=== PATIENT | female | born 1930 | race Caucasian/White ===

== ENCOUNTER 2017-09-02 17:06 | Inpatient (IN) | payer MEDICARE ==
[~2017-09-02] VITALS: Ht 170.2 cm; Wt 62.0 kg
[2017-09-02 04:45] VITALS: TEMP 100.4
[~2017-09-02 17:06] MED LIST: CALC-197 PO; LASI20TA PO; OMEP20CA5 PO; OXYC-360 PO; POTA-243 PO; RED600TA PO
[2017-09-02 17:12] VITALS: BP 186/136; PULSE 125; RESP 22; TEMP 97.9; O2SAT 96
[2017-09-02] MEDS ORDERED: SODIUM CHLORIDE 0.9% FLUSH 10 ML FLUSH IV FLUSH PRN ×2 (18:00→20:00)
[2017-09-02] MEDS ORDERED: cefTRIAXone INJ 1,000 MG in SODIUM CHLORIDE 0.9% INJ 100 ML IV ONE (18:00)
[2017-09-02] MEDS ORDERED: FUROSEMIDE 40 MG/4 ML VIAL IV PUSH ONE (18:00)
[2017-09-02 18:13] VITALS: BP 152/58; PULSE 114; RESP 20; TEMP 101.8; O2SAT 96
--- NOTE | 2017-09-02 18:17 | PD ---
HPI Chief Complaint: Edema Time Seen by Provider: 17:57 Travel History International Travel<30 days: No Contact w/Intl Traveler<30days: No Traveled to known affect area: No History of Present Illness HPI 87-year-old female brought in by her son with multiple complaints, including increased pedal edema, lower extremity discomfort, confusion, and being more agitated and argumentative than normal. Patient lives with her son, who took her to the director employee safety and health earlier today for a foot check. Patient has history of chronic pedal edema for which he takes Lasix daily. Patient states normally the patient ambulates well with a walker, but had difficulty getting up and going to the car to get to her appointment. She is complaining about lower extremity pain and generalized weakness. Patient denies fever, chills, nausea, vomiting, chest pain, or increased shortness of breath. She denies dysuria but she has history of incontinence. Patient's son states the podiatry staff recommended we get her checked out as she was acting differently than her baseline. Patient's son states that her pedal edema seems worse than normal in the last 24 hours. Patient denies history of recent chest pain. She denies significant pain currently. She has allergies to influenza virus vaccine. PFSH Past Medical History Anxiety: Yes Depression: Yes Cancer: No Cardiovascular Problems: Yes Diminished Hearing: No Endocrine: No Genitourinary: No Hypertension: Yes Immune Disorder: No Musculoskeletal: Yes (VERY WEAK) Neurologic: No Psychiatric: Yes Reproductive: No Respiratory: No Influenza Vaccination: No ?: Not Menopausal: Yes Social History Alcohol Use: No Tobacco Use: No Substance Use: No Allergies-Medications (Allergen,Severity, Reaction): Coded Allergies: Influenza Virus Vaccines (Verified Allergy, Severe, 09/02/17) Reported Meds & Prescriptions Reported Meds & Active Scripts Active Reported Calcium 600+D3 (Calcium Carbonate-Cholecalcife) +D3 Tab 1 Mg PO DAILY K-Dur (Potassium Chloride) 10 Meq Tabcr 10 Meq PO DAILY Prilosec 20 mg (Omeprazole) 20 Mg Capcr 20 Mg PO DAILY Lasix (Furosemide) 20 Mg Tab 20 Mg PO DAILY Review of Systems Except as stated in HPI: all other systems reviewed are Neg General / Constitutional: Positive: Fever (101.8.), No: Chills Eyes: No: Diploplia, Blurred Vision, Photophobia, Drainage, Visual changes HENT: No: Headaches, Vertigo, Lightheadedness, Sore Throat, Rhinitis, Rhinorrhea, Congestion, Nosebleed, Neck Stiffness, Neck Pain, Dental Difficulties, Earache Cardiovascular: No: Chest Pain or Discomfort Respiratory: No: Cough, Shortness of Breath, Wheezing Gastrointestinal: No: Nausea, Vomiting, Diarrhea, Abdominal Pain Genitourinary: Positive: Incontinence, No: Dysuria Musculoskeletal: Positive: Weakness (Generalized), Edema (Bilateral 2+ pitting chronic), No: Myalgias, Arthralgias, Limited ROM, Pain Skin: No Rash Neurologic: No: Weakness Psychiatric: No: Depression Endocrine: No: Polydipsia Hematologic/Lymphatic: No: Easy Bruising Physical Exam Narrative GENERAL: Patient appears somewhat confused, but knows that she is here, that she lives with her son, and why she is here. SKIN: Warm and dry. Normal color. Somewhat decreased turgor. There is no signs of cellulitis in the lower extremities. There is some mild serous weeping from the left lower extremity. No signs of significant skin breakdown currently HEAD: Atraumatic. Normocephalic. EYES: Pupils equal and round. No scleral icterus. No injection or drainage. ENT: No nasal bleeding or discharge. Mucous membranes pink and moist. Pharynx is clear. Airways patent NECK: Trachea midline. No JVD. Supple nontender. CARDIOVASCULAR: Tachycardic rate and normal rhythm. RESPIRATORY: No accessory muscle use. Clear to auscultation. No obvious rales or crackles appreciated. Breath sounds equal bilaterally. GASTROINTESTINAL: Abdomen soft, non-tender, nondistended. Hepatic and splenic margins not palpable. MUSCULOSKELETAL: Extremities without clubbing, cyanosis, or 2+ pitting edema. No obvious deformities. Moving all extremities normally NEUROLOGICAL: Awake and alert. No obvious cranial nerve deficits. Motor grossly within normal limits. Five out of 5 muscle strength in the arms and legs. Normal speech. PSYCHIATRIC: Appropriate mood and affect; insight and judgment normal. Data Data Last Documented VS Vital Signs Date Time Temp Pulse Resp B/P (MAP) Pulse Ox O2 Delivery O2 Flow Rate FiO2 09/02/17 18:13 101.8 114 20 152/58 (89) 96 Room Air Orders Orders Electrocardiogram (09/02/17 17:57) Complete Blood Count With Diff (09/02/17 17:57) Comprehensive Metabolic Panel (09/02/17 17:57) Prothrombin Time / Inr (Pt) (09/02/17 17:57) Act Partial Throm Time (Ptt) (09/02/17 17:57) Troponin I (09/02/17 17:57) Urinalysis - C+S If Indicated (09/02/17 17:57) Lactic Acid Sepsis Protocol (09/02/17 17:57) Blood Culture (09/02/17 17:57) Chest, Single Ap (09/02/17 17:57) Blood Glucose (09/02/17 17:57) Ecg Monitoring (09/02/17 17:57) Iv Access Insert/Monitor (09/02/17 17:57) Cath For Specimen (09/02/17 17:57) Oximetry (09/02/17 17:57) Sodium Chloride 0.9% Flush (Ns Flush) (09/02/17 18:00) B-Type Natriuretic Peptide (09/02/17 17:57) Magnesium (Mg) (09/02/17 17:57) Ceftriaxone Inj (Rocephin Inj) (09/02/17 18:00) Furosemide Inj (Lasix Inj) (09/02/17 18:00) Urine Culture (09/02/17 18:15) Labs Laboratory Tests Test 09/02/17 18:15 White Blood Count 9.0 TH/MM3 Red Blood Count 4.10 MIL/MM3 Hemoglobin 11.7 GM/DL Hematocrit 36.1 % Mean Corpuscular Volume 88.0 FL Mean Corpuscular Hemoglobin 28.4 PG Mean Corpuscular Hemoglobin Concent 32.3 % Red Cell Distribution Width 15.1 % Platelet Count 184 TH/MM3 Mean Platelet Volume 8.8 FL Neutrophils (%) (Auto) 79.7 % Lymphocytes (%) (Auto) 11.4 % Monocytes (%) (Auto) 8.5 % Eosinophils (%) (Auto) 0.0 % Basophils (%) (Auto) 0.4 % Neutrophils # (Auto) 7.2 TH/MM3 Lymphocytes # (Auto) 1.0 TH/MM3 Monocytes # (Auto) 0.8 TH/MM3 Eosinophils # (Auto) 0.0 TH/MM3 Basophils # (Auto) 0.0 TH/MM3 CBC Comment DIFF FINAL Differential Comment Prothrombin Time 10.8 SEC Prothromb Time International Ratio 1.1 RATIO Activated Partial Thromboplast Time 22.9 SEC Urine Color YELLOW Urine Turbidity HAZY Urine pH 5.0 Urine Specific [place] 1.018 Urine Protein 100 mg/dL Urine Glucose (UA) NEG mg/dL Urine Ketones TRACE mg/dL Urine Occult Blood SMALL Urine Nitrite POS Urine Bilirubin NEG Urine Urobilinogen 2.0 mg/dL Urine Leukocyte Esterase TRACE Urine RBC 1 /hpf Urine WBC 9 /hpf Urine Squamous Epithelial Cells <1 /hpf Urine Bacteria MANY /hpf Urine Hyaline Casts 21 /lpf Urine Mucus FEW /lpf Microscopic Urinalysis Comment CULTURE INDICATED Blood Urea Nitrogen 31 MG/DL Creatinine 1.27 MG/DL Random Glucose 124 MG/DL Total Protein 8.1 GM/DL Albumin 3.8 GM/DL Calcium Level 10.3 MG/DL Magnesium Level 1.9 MG/DL Alkaline Phosphatase 93 U/L Aspartate Amino Transf (AST/SGOT) 134 U/L Alanine Aminotransferase (ALT/SGPT) 27 U/L Total Bilirubin 0.6 MG/DL Sodium Level 142 MEQ/L Potassium Level 4.2 MEQ/L Chloride Level 107 MEQ/L Carbon Dioxide Level 20.8 MEQ/L Anion Gap 14 MEQ/L Estimat Glomerular Filtration Rate 40 ML/MIN Lactic Acid Level 3.9 mmol/L Troponin I LESS THAN 0.02 NG/ML B-Type Natriuretic Peptide 109 PG/ML MDM Medical Decision Making Medical Screen Exam Complete: Yes Emergency Medical Condition: Yes Medical Record Reviewed: Yes Differential Diagnosis Fever. Sepsis. Tachycardia. Pedal edema. CHF. Cardiac syndrome. Urosepsis. Confusion. Narrative Course Patient appears medically stable at time of exam. She is noted to have fever and is tachycardic. Sepsis protocol is initiated including blood cultures 2, lactic acid per protocol, CBC, CMP, and urinalysis as well as magnesium, cardiac panel and proBNP, chest x-ray is ordered as well as EKG. IV access is obtained the patient is given 1000 mg Rocephin IV. EKG shows sinus tachycardia 105 bpm. There are no significant changes otherwise. Chest x-ray shows: A single AP view of the chest demonstrates the lungs to be symmetrically aerated without evidence of mass, infiltrate or effusion. The patient's chin and soft tissues obscure the right lung apex. The cardiomediastinal contours are unremarkable. A scoliotic and degenerative thoracic spine. CBC is unremarkable. Coagulation studies are normal with a PT of 10.8, and INR is 1.1 Chemistry significant for carbon dioxide of 20.8, BUN is 31, creatinine is 1.27 , GFR is estimated at 40. ProBNP is 109. Random glucose is 124, calcium is 10.3, AST is 134, and troponin is less than 0.02 Lactic acid is significantly elevated at 3.9 Urinalysis is also very significant with 100 protein, trace ketones, small occult blood, positive nitrites, 2.0 urobilinogen, trace leukocyte esterase. Patient has 9 white blood cells per high-power field. Urine has many bacteria. Less than 1 epithelial cell per high-power field. Culture is placed. Patient is given 500 mL bolus of normal saline IV. Patient is felt to have urosepsis and will be admitted. Sepsis Criteria SIRS Criteria (2 or more): Temp > 100.9 or < 96.8, Heart rate over 90 Sepsis Criteria (SIRS+source): Infect source susp/known Severe Sepsis (+one): Lactate >2 Criteria Outcome: Meets severe sepsis criteria Diagnosis Primary Impression: Sepsis Qualified Codes: A41.9 - Sepsis, unspecified organism Additional Impressions: Urinary tract infection Qualified Codes: N30.00 - Acute cystitis without hematuria Pedal edema Admitting Information Admitting Physician Requests: Admit Condition: Stable Yunier Corbin Sep 02, 2017 18:17
--- NOTE | 2017-09-02 18:26 | RADRPT ---
EXAM DATE: 09/02/2017 6:17 PM EDT AGE/SEX: 87 years / Female INDICATIONS: Fever CLINICAL DATA: This is the patient's initial encounter. Patient reports that signs and symptoms have been present for 1 day and indicates a pain score of 0/10. MEDICAL/SURGICAL HISTORY: Non-responsive. Non-responsive. COMPARISON: None. FINDINGS: A single AP view of the chest demonstrates the lungs to be symmetrically aerated without evidence of mass, infiltrate or effusion. The patient's chin and soft tissues obscure the right lung apex. The ca rdiomediastinal contours are unremarkable. A scoliotic and degenerative thoracic spine.. CONCLUSION: Somewhat limited study. No infiltrate observed. Electronically signed by: Mahamed Hennessy MD 09/02/2017 6:25 PM EDT
[2017-09-02 18:48] LABS: AUTOMATED NEUTROPHIL # 7.2 TH/MM3 (1.8-7.7); BASOPHIL % 0.4 % (0.0-2.0); HEMATOCRIT 36.1 % (35.0-46.0); HEMOGLOBIN 11.7 GM/DL (11.6-15.3); LYMPH % 11.4 % (9.0-44.0); MEAN CORPUSCULAR HEMOGLOBIN 28.4 PG (27.0-34.0); MEAN CORPUSCULAR HGB CONC 32.3 % (32.0-36.0); MEAN PLATELET VOLUME 8.8 FL (7.0-11.0); MONO % 8.5 % (0.0-8.0); MONOCYTE # 0.8 TH/MM3 (0-0.9); NEUT % 79.7 % (16.0-70.0); PLATELET COUNT 184 TH/MM3 (150-450); RED CELL DISTRIBUTION WIDTH 15.1 % (11.6-17.2)
[2017-09-02 18:57] LABS: INTERNATIONAL NORMALIZED RATIO 1.1 RATIO; PROTHROMBIN TIME - PATIENT 10.8 SEC (9.8-11.6)
[2017-09-02 18:58] LABS: BACTERIA, URINE MANY /hpf; BILIRUBIN, URINE NEG (NEG); BLOOD, URINE SMALL (NEG); GLUCOSE,URINE NEG (NEG); HYALINE CAST, URINE 21 /lpf (RARE); KETONE, URINE TRACE mg/dL (NEG); MUCUS URINE FEW /lpf (OCC); NITRITE,URINE POS (NEG); SQUAMOUS EPITHELIAL CELL URINE <1 /hpf (0-5); URINE COLOR YELLOW (YELLW/STRAW); URINE LEUKOCYTE ESTERASE TRACE (NEG)
[2017-09-02 19:06] LABS: ALBUMIN 3.8 GM/DL (3.4-5.0); AST (GOT) 134 U/L (15-37); BICARBONATE 20.8 MEQ/L (21.0-32.0); BLOOD UREA NITROGEN 31 MG/DL (7-18); CALCIUM 10.3 MG/DL (8.5-10.1); CHLORIDE 107 MEQ/L (98-107); CREATININE 1.27 MG/DL (0.50-1.00); GLOMERULAR FILTRATION RATE 40 ML/MIN (>89); GLUCOSE,RANDOM 124 MG/DL (74-106); MAGNESIUM 1.9 MG/DL (1.5-2.5); SODIUM (NA) 142 MEQ/L (136-145)
[2017-09-02 19:07] LABS: ALT (GPT) 27 U/L (10-53)
[2017-09-02 19:09] LABS: LACTIC ACID SEPSIS PROTOCOL 3.9 mmol/L (0.4-2.0)
[2017-09-02 19:11] LABS: ALKALINE PHOSPHATASE 93 U/L (45-117); TOTAL BILIRUBIN ADULT 0.6 MG/DL (0.2-1.0); TOTAL PROTEIN 8.1 GM/DL (6.4-8.2); TROPONIN I LESS THAN 0.02 NG/ML (0.02-0.05)
[2017-09-02] MEDS ORDERED: ONDANSETRON ODT 4 MG TAB PO PRN (20:00)
[2017-09-02] MEDS ORDERED: MAGNESIUM HYDROXIDE SUSP 30 ML CUP PO PRN (20:00)
[2017-09-02] MEDS ORDERED: NALOXONE HCL 0.4 MG/ML AMP IV PUSH PRN (20:00)
[2017-09-02] MEDS ORDERED: LORazepam 2 MG/ML VIAL IV PUSH PRN (20:00)
[2017-09-02] MEDS: SODIUM CHLORIDE 0.9% FLUSH 10 ML FLUSH IV FLUSH SCH (21:00)
[2017-09-02] MEDS: NYSTATIN 100,000 U/GM OINT 15 GM TUBE TOPICAL SCH (22:32)
[2017-09-02] MEDS: DOCUSATE SODIUM 50 MG/SENNA 8.6 MG TAB PO SCH (22:32)
[2017-09-02] MEDS: 1/2 NS + KCL 20 MEQ INJ 1,000 ML IV SCH (22:36)
[2017-09-02 22:41] VITALS: BP 138/64; PULSE 88; RESP 16; TEMP 101.5; O2SAT 97
[2017-09-02] MEDS: ACETAMINOPHEN 325 MG TAB PO PRN (22:50)
[2017-09-02 23:03] VITALS: PULSE 86
[2017-09-03] VITALS (8 sets, daily range): BP systolic 127–159; BP diastolic 60–70; PULSE 66–103; RESP 16–20; TEMP 97.3–100.6; O2SAT 95–98
[2017-09-03] MEDS: NYSTATIN 100,000 U/GM OINT 15 GM TUBE TOPICAL SCH ×3 (05:26→21:23)
[2017-09-03 08:57] LABS: AUTOMATED NEUTROPHIL # 5.6 TH/MM3 (1.8-7.7); BASOPHIL % 0.2 % (0.0-2.0); HEMATOCRIT 37.1 % (35.0-46.0); HEMOGLOBIN 12.1 GM/DL (11.6-15.3); LYMPH % 11.6 % (9.0-44.0); LYMPHOCYTE # 0.9 TH/MM3 (1.0-4.8); MEAN CELL VOLUME 87.6 FL (80.0-100.0); MEAN CORPUSCULAR HEMOGLOBIN 28.6 PG (27.0-34.0); MEAN CORPUSCULAR HGB CONC 32.6 % (32.0-36.0); MEAN PLATELET VOLUME 8.9 FL (7.0-11.0); MONO % 12.4 % (0.0-8.0); MONOCYTE # 0.9 TH/MM3 (0-0.9); NEUT % 75.8 % (16.0-70.0); PLATELET COUNT 121 TH/MM3 (150-450); RED BLOOD COUNT 4.23 MIL/MM3 (4.00-5.30); RED CELL DISTRIBUTION WIDTH 14.8 % (11.6-17.2); WHITE BLOOD COUNT 7.4 TH/MM3 (4.0-11.0)
[2017-09-03] MEDS: DOCUSATE SODIUM 50 MG/SENNA 8.6 MG TAB PO SCH ×2 (09:00→21:23)
[2017-09-03] MEDS: PANTOPRAZOLE SOD 20 MG DELAYED RELEASE TAB PO SCH (09:00)
[2017-09-03] MEDS: SODIUM CHLORIDE 0.9% FLUSH 10 ML FLUSH IV FLUSH SCH ×2 (09:01→21:23)
--- NOTE | 2017-09-03 09:18 | HHI.HP ---
HPI Service [facility] Hospitalists Primary Care Physician Mustapha Baldwin MD Admission Diagnosis UTI/Pedal Edema Chief Complaint: bilateral lower extremity edema Travel History International Travel<30 Days: No Contact w/Intl Traveler <30 Da: No Traveled to Known Affected Are: No History of Present Illness This 87-year-old female patient with past medical history which includes hypertension, hyperlipidemia, depression, thrombocytopenia, hyperparathyroidism , chronic kidney disease stage III and chronic bilateral lower extremity edema due to venous insufficiency. Patient lives with her son and was brought in to the emergency department by her son. Patient's son took patient to [facility] this AM and patient had a hard time walking and seemed confused. Patient's son then brought her to the ER with complaints including increase in chronic pedal edema, lower extremity discomfort, confusion and being more agitated and argumentative than her baseline. Patient does endorse generalized weakness compared to her baseline as well as bilateral lower extremity edema and discomfort. Patient endorses mild shortness of breath which is worse with exertion. Patient denies dysuria but does have incontinence. Patient denies chest pain nausea vomiting diarrhea constipation fevers chills cough, congestion or weight gain. Urinalysis reviewed and reveals high protein positive nitrates trace mild leukocyte esterase urine white blood cells many bacteria and few mucus present urine cultures pending Review of Systems ROS Limitations: Poor Historian Constitutional: COMPLAINS OF: Fatigue, DENIES: Fever, Weight gain, Chills Respiratory: COMPLAINS OF: Shortness of breath, DENIES: Cough, Sputum production Cardiovascular: COMPLAINS OF: Dyspnea on Exertion, Lower Extremity Edema, DENIES: Chest pain Gastrointestinal: DENIES: Abdominal pain, Constipation, Diarrhea, Nausea, Vomiting Genitourinary: COMPLAINS OF: Urinary frequency, Urinary incontinence (chronic) Neurologic: COMPLAINS OF: Abnormal gait, DENIES: Headache, Localized weakness Psychiatric: COMPLAINS OF: Confusion, DENIES: Anxiety, Depression Past Family Social History Past Medical History hypertension, hyperlipidemia, depression, thrombocytopenia, hyperparathyroidism , chronic kidney disease stage III and chronic bilateral lower extremity edema due to venous insufficiency. Past Surgical History Colonoscopy, EGD, endoscopic ultrasound of the pancreas, fine-needle aspiration , incisional breast biopsy and open treatment and intertrochanteric fracture Reported Medications Calcium 600+D3 (Calcium Carbonate-Cholecalcife) +D3 Tab 1 Mg PO DAILY K-Dur (Potassium Chloride) 10 Meq Tabcr 10 Meq PO DAILY Prilosec 20 mg (Omeprazole) 20 Mg Capcr 20 Mg PO DAILY Lasix (Furosemide) 20 Mg Tab 20 Mg PO DAILY Allergies: Coded Allergies: Influenza Virus Vaccines (Verified Allergy, Severe, 09/02/17) Family History SD and hypertension Social History Patient denies EtOH use tobacco use or illicit drug use Physical Exam Vital Signs Vital Signs Date Time Temp Pulse Resp B/P (MAP) Pulse Ox O2 Delivery O2 Flow Rate FiO2 09/03/17 09:04 98.9 103 18 146/60 (88) 95 09/03/17 07:20 66 09/03/17 03:33 98.2 76 16 140/62 (88) 98 09/03/17 00:06 98.2 09/02/17 23:03 86 09/02/17 22:41 101.5 88 16 138/64 (88) 97 09/02/17 18:13 101.8 114 20 152/58 (89) 96 Room Air 09/02/17 18:10 96 Room Air 09/02/17 17:12 97.9 125 22 186/136 (153) 96 Physical Exam GENERAL: This is an elderly 87-year-old female patient in no acute distress SKIN: Generalized thinning of skin with scattered ecchymosis bilateral upper extremities HEAD: Atraumatic. Normocephalic. No temporal or scalp tenderness. EYES: Extraocular motions intact. No scleral icterus. No injection or drainage. CARDIOVASCULAR: Regular rate and rhythm RESPIRATORY: Clear to auscultation. Breath sounds equal bilaterally. GASTROINTESTINAL: Abdomen soft, non-tender, nondistended. MUSCULOSKELETAL: Bilateral lower extremity 2+ pitting edema NEUROLOGICAL: Awake and alert. No focal deficits appreciated. Motor and sensory grossly within normal limits. 4 out of 5 muscle strength in all muscle groups. Normal speech. Laboratory Laboratory Tests Test 09/02/17 18:15 09/02/17 21:53 09/03/17 08:14 White Blood Count 9.0 7.4 Red Blood Count 4.10 4.23 Hemoglobin 11.7 12.1 Hematocrit 36.1 37.1 Mean Corpuscular Volume 88.0 87.6 Mean Corpuscular Hemoglobin 28.4 28.6 Mean Corpuscular Hemoglobin Concent 32.3 32.6 Red Cell Distribution Width 15.1 14.8 Platelet Count 184 121 Mean Platelet Volume 8.8 8.9 Neutrophils (%) (Auto) 79.7 75.8 Lymphocytes (%) (Auto) 11.4 11.6 Monocytes (%) (Auto) 8.5 12.4 Eosinophils (%) (Auto) 0.0 0.0 Basophils (%) (Auto) 0.4 0.2 Neutrophils # (Auto) 7.2 5.6 Lymphocytes # (Auto) 1.0 0.9 Monocytes # (Auto) 0.8 0.9 Eosinophils # (Auto) 0.0 0.0 Basophils # (Auto) 0.0 0.0 CBC Comment DIFF FINAL DIFF FINAL Differential Comment Prothrombin Time 10.8 Prothromb Time International Ratio 1.1 Activated Partial Thromboplast Time 22.9 Urine Color YELLOW Urine Turbidity HAZY Urine pH 5.0 Urine Specific [place] 1.018 Urine Protein 100 Urine Glucose (UA) NEG Urine Ketones TRACE Urine Occult Blood SMALL Urine Nitrite POS Urine Bilirubin NEG Urine Urobilinogen 2.0 Urine Leukocyte Esterase TRACE Urine RBC 1 Urine WBC 9 Urine Squamous Epithelial Cells <1 Urine Bacteria MANY Urine Hyaline Casts 21 Urine Mucus FEW Microscopic Urinalysis Comment CULTURE INDICATED Blood Urea Nitrogen 31 Creatinine 1.27 Random Glucose 124 Total Protein 8.1 Albumin 3.8 Calcium Level 10.3 Magnesium Level 1.9 Alkaline Phosphatase 93 Aspartate Amino Transf (AST/SGOT) 134 Alanine Aminotransferase (ALT/SGPT) 27 Total Bilirubin 0.6 Sodium Level 142 Potassium Level 4.2 Chloride Level 107 Carbon Dioxide Level 20.8 Anion Gap 14 Estimat Glomerular Filtration Rate 40 Lactic Acid Level 3.9 1.1 Troponin I LESS THAN 0.02 B-Type Natriuretic Peptide 109 Date/Time Source Procedure Growth Status 09/02/17 18:20 Blood Peripheral Aerobic Blood Culture Pending Received 09/02/17 18:20 Blood Peripheral Anaerobic Blood Culture Pending Received 09/02/17 18:15 Urine Catheterized Urine Urine Culture Pending Received Result Diagram: 09/03/17 0814 09/02/175 Imaging Last Impressions Chest X-Ray 09/02/17 1757 Signed Impressions: CONCLUSION: Somewhat limited study. No infiltrate observed. Caprini VTE Risk Assessment Caprini VTE Risk Assessment: Mod/High Risk (score >= 2) Caprini Risk Assessment Model Point Value = 1 Point Value = 2 Point Value = 3 Point Value = 5 Age 41-60 Minor surgery BMI > 25 kg/m2 Swollen legs Varicose veins or History of unexplained or recurrent spontaneous Oral contraceptives or hormone replacement Sepsis (< 1 month) Serious lung disease, including pneumonia (< 1 month) Abnormal pulmonary function Acute myocardial infarction Congestive heart failure (< 1 month) History of inflammatory bowel disease Medical patient at bed rest Age 61-74 Arthroscopic surgery Major open surgery (> 45 min) Laparoscopic surgery (> 45 min) Malignancy Confined to bed (> 72 hours) Immobilizing plaster cast Central venous access Age >= 75 History of VTE Family history of VTE Factor V Leiden Prothrombin [id number] Lupus anticoagulant Anticardiolipin antibodies Elevated serum homocysteine Heparin-induced thrombocytopenia Other congenital or acquired thrombophilia Stroke (< 1 month) Elective arthroplasty Hip, pelvis, or leg fracture Acute spinal cord injury (< 1 month) Prophylaxis Regimen Total Risk Factor Score Risk Level Prophylaxis Regimen 0-1 Low Early ambulation 2 Moderate Order ONE of the following: *Sequential Compression Device (SCD) *Heparin 5000 units SQ BID 3-4 Higher Order ONE of the following medications: *Heparin 5000 units SQ TID *Enoxaparin/Lovenox 40 mg SQ daily (WT < 150 kg, CrCl > 30 mL/min) *Enoxaparin/Lovenox 30 mg SQ daily (WT < 150 kg, CrCl > 10-29 mL/min) *Enoxaparin/Lovenox 30 mg SQ BID (WT < 150 kg, CrCl > 30 mL/min) AND/OR *Sequential Compression Device (SCD) 5 or more Highest Order ONE of the following medications: *Heparin 5000 units SQ TID (Preferred with Epidurals) *Enoxaparin/Lovenox 40 mg SQ daily (WT < 150 kg, CrCl > 30 mL/min) *Enoxaparin/Lovenox 30 mg SQ daily (WT < 150 kg, CrCl > 10-29 mL/min) *Enoxaparin/Lovenox 30 mg SQ BID (WT < 150 kg, CrCl > 30 mL/min) AND *Sequential Compression Device (SCD) Assessment and Plan Problem List: (1) Urinary tract infection ICD Codes: N39.0 - Urinary tract infection, site not specified Status: Acute Plan: This 87-year-old female patient with past medical history which includes hypertension, hyperlipidemia, depression, thrombocytopenia, hyperparathyroidism , chronic kidney disease stage III and chronic bilateral lower extremity edema due to venous insufficiency. Patient lives with her son and was brought in to the emergency department by by her son for multiple concerns including increased chronic pedal edema, lower extremity discomfort, confusion and being more agitated and argumentative than her baseline. Urinalysis reviewed and reveals high protein positive nitrates trace mild leukocyte esterase urine white blood cells many bacteria and few mucus present urine culture pending Patient started on Rocephin emergency department will continue Blood cultures 2 obtained and pending as well White blood cell count on admission noted to be 9.0 with 79% neutrophils Initial lactic acid 3.9 repeat lactic acid 1.1 after IV hydration Patient's BUN on arrival to the emergency department was 31 creatinine 1.27 and estimated GFR 40 patient has chronic kidney disease stage III We will provide gentle IV hydration and hold Lasix at this time DVT prophylaxis with SCDs (2) Hypertension ICD Codes: I10 - Essential (primary) hypertension Plan: Patient is on Lasix 20 mg p.o. daily which per review of outpatient records maintains her blood pressure in acceptable range Monitor BP add antihypertensive if necessary (3) Pedal edema ICD Codes: R60.0 - Localized edema Status: Acute Plan: Patient has chronic pedal edema thought to be secondary to venous insufficiency treated with Lasix per patient and son the edema seems much worse than normal US BLE reviewed and reveals: No DVT identified within either lower extremity. There is edema in the subcutaneous soft tissue resume home Lasix 20 mg PO daily Apply teds and SCDs recheck BMP in AM (4) Generalized weakness ICD Codes: R53.1 - Weakness Plan: Patient typically ambulates with a walker but purse patient and per patient patient's son she has had a more difficult time in the last 24 hours Likely secondary to urinary tract infection PT consult for evaluation and treatment Patient may need SNF placement at discharge for short-term rehab and strengthening Assessment and Plan Patient examined. Assessment and plan formulated with Yane NAVARRETE I agree with the above. Physician Certification 2 Midnight Certification Type: Admission for Inpatient Services Order for Inpatient Services The services are ordered in accordance with Medicare regulations or non- Medicare payer requirements, as applicable. In the case of services not specified as inpatient-only, they are appropriately provided as inpatient services in accordance with the 2-midnight benchmark. Estimated LOS (days): 3 days is the estimated time the patient will need to remain in the hospital, assuming treatment plan goals are met and no additional complications. Post-Hospital Plan: SNF Problem Qualifiers (1) Urinary tract infection: Qualified Codes: N30.00 - Acute cystitis without hematuria Yane Hawk Sep 03, 2017 09:18 Darrell Coulter DO Sep 04, 2017 15:23
[2017-09-03 09:19] LABS: CREATININE 0.93 MG/DL (0.50-1.00)
--- NOTE | 2017-09-03 09:19 | EKG ---
Date Performed: 09/02/2017 Time Performed: 18:21:18 PTAGE: 87 years EKG: SINUS TACHYCARDIA ABNORMAL RHYTHM ECG NO PREVIOUS TRACING DOCTOR: Shayan Marie Interpretating Date/Time 09/03/2017 09:14:59
[2017-09-03 09:20] LABS: BICARBONATE 27.9 MEQ/L (21.0-32.0); CALCIUM 9.7 MG/DL (8.5-10.1)
[2017-09-03] MEDS: 1/2 NS + KCL 20 MEQ INJ 1,000 ML IV SCH (09:42)
[2017-09-03] MEDS: ACETAMINOPHEN 325 MG TAB PO PRN (13:46)
--- NOTE | 2017-09-03 15:36 | RADRPT ---
EXAM DATE: 09/03/2017 3:33 PM EDT AGE/SEX: 87 years / Female INDICATIONS: Bilateral leg swelling. CLINICAL DATA: This is the patient's initial encounter. Patient reports that signs and symptoms have been present for 1 week and indicates a pain score of 4/10. MEDICAL/SURGICAL HISTORY: Hypertension. Dyspnea. Anxiety. . Pin placed in left hip. COMPARISON: No prior exams available for comparison. TECHNIQUE: Venous ultrasound of both lower extremities was performed from the inguinal ligament to t he proximal calf. Real-time, color Doppler and spectral tracing, compression and augmentation techni ques were used. FINDINGS: Right Leg: Normal compression of the deep venous system from the inguinal region to the proximal paulette f. No echogenic clot is seen. Normal response of the venous system to augmentation and respiration. Left Leg: Normal compression of the deep venous system from the inguinal region to the proximal calf . No echogenic clot is seen. Normal response of the venous system to augmentation and respiration. Other: None. CONCLUSION: 1. No DVT identified within either lower extremity. 2. There is edema in the subcutaneous soft tissues. Electronically signed by: Toi Lam MD 09/03/2017 3:35 PM EDT
[2017-09-03] MEDS ORDERED: cefTRIAXone 1,000 MG/NS 100 ML IV SCH ×2 (23:15)
[2017-09-04] VITALS (11 sets, daily range): BP systolic 113–146; BP diastolic 56–67; PULSE 65–96; RESP 16–20; TEMP 96.4–100.4; O2SAT 95–98
[2017-09-04] MEDS: ACETAMINOPHEN 325 MG TAB PO PRN ×3 (05:01→20:12)
[2017-09-04] MEDS: NYSTATIN 100,000 U/GM OINT 15 GM TUBE TOPICAL SCH ×3 (05:05→21:51)
[2017-09-04 07:36] LABS: BICARBONATE 23.8 MEQ/L (21.0-32.0); CALCIUM 9.3 MG/DL (8.5-10.1); CREATININE 0.69 MG/DL (0.50-1.00)
[2017-09-04] MEDS: DOCUSATE SODIUM 50 MG/SENNA 8.6 MG TAB PO SCH ×2 (09:00→20:12)
[2017-09-04] MEDS ORDERED: OMEPRAZOLE 20 MG PO SCH (09:00)
[2017-09-04 10:31] LABS: AUTOMATED NEUTROPHIL # 7.4 TH/MM3 (1.8-7.7); BASOPHIL % 0.1 % (0.0-2.0); EOSINOPHIL % 0.1 % (0.0-4.0); HEMATOCRIT 33.7 % (35.0-46.0); HEMOGLOBIN 11.4 GM/DL (11.6-15.3); LYMPH % 8.9 % (9.0-44.0); LYMPHOCYTE # 0.9 TH/MM3 (1.0-4.8); MEAN CELL VOLUME 87.2 FL (80.0-100.0); MEAN CORPUSCULAR HEMOGLOBIN 29.4 PG (27.0-34.0); MEAN CORPUSCULAR HGB CONC 33.7 % (32.0-36.0); MEAN PLATELET VOLUME 8.8 FL (7.0-11.0); MONO % 12.9 % (0.0-8.0); MONOCYTE # 1.2 TH/MM3 (0-0.9); PLATELET COUNT 123 TH/MM3 (150-450); RED BLOOD COUNT 3.86 MIL/MM3 (4.00-5.30); RED CELL DISTRIBUTION WIDTH 14.7 % (11.6-17.2); WHITE BLOOD COUNT 9.5 TH/MM3 (4.0-11.0)
[2017-09-04] MEDS: POTASSIUM CHLORIDE 10 MEQ CONTROLLED RELEASE TAB PO SCH (11:15)
[2017-09-04] MEDS: FUROSEMIDE 20 MG TAB PO SCH (11:15)
[2017-09-04] MEDS: PANTOPRAZOLE SOD 20 MG DELAYED RELEASE TAB PO SCH (11:15)
[2017-09-04] MEDS: SODIUM CHLORIDE 0.9% FLUSH 10 ML FLUSH IV FLUSH SCH ×2 (11:16→20:15)
--- NOTE | 2017-09-04 12:27 | HHI.PR ---
Subjective Remarks Pt somewhat sedated following ativan. Objective Vitals Vital Signs Date Time Temp Pulse Resp B/P (MAP) Pulse Ox O2 Delivery O2 Flow Rate FiO2 09/04/17 11:46 98.6 20 09/04/17 08:00 96.4 74 20 113/56 (75) 96 09/04/17 04:49 73 09/04/17 04:45 100.4 09/04/17 04:17 100.1 90 18 144/63 (90) 95 09/03/17 23:54 97.3 95 16 139/60 (86) 95 09/03/17 20:12 97.4 84 16 127/62 (83) 97 09/03/17 17:23 97.6 73 18 128/64 (85) 97 09/03/17 13:07 100.6 78 20 159/70 (99) 95 Result Diagram: 09/04/17 1005 09/04/17 0630 Imaging Last Impressions Lower Extremity Ultrasound 09/03/17 0000 Signed Impressions: CONCLUSION: 1. No DVT identified within either lower extremity. 2. There is edema in the subcutaneous soft tissues. Chest X-Ray 09/02/17 0857 Signed Impressions: CONCLUSION: Somewhat limited study. No infiltrate observed. Objective Remarks GENERAL: This is a well-nourished, well-developed patient, in no apparent distress. CARDIOVASCULAR: Regular rate and rhythm without murmurs, gallops, or rubs. RESPIRATORY: Clear to auscultation. Breath sounds equal bilaterally. No wheezes , rales, or rhonchi. GASTROINTESTINAL: Abdomen soft, non-tender, nondistended. Normal active bowel sounds MUSCULOSKELETAL: Extremities without clubbing, cyanosis, or edema. NEURO: Alert & Oriented x3, but confused at times. A/P Problem List: (1) Urinary tract infection ICD Codes: N39.0 - Urinary tract infection, site not specified Status: Acute Plan: This 87-year-old female patient with past medical history which includes hypertension, hyperlipidemia, depression, thrombocytopenia, hyperparathyroidism , chronic kidney disease stage III and chronic bilateral lower extremity edema due to venous insufficiency. Patient lives with her son and was brought in to the emergency department by by her son for multiple concerns including increased chronic pedal edema, lower extremity discomfort, confusion and being more agitated and argumentative than her baseline. - Urine Cx (09/02) --> E. Coli - Blood Cx (09/02) --> NGTD - Tmax 100.4F at 4AM, no leukocytosis - Initial lactic acid 3.9 repeat lactic acid 1.1 after IV hydration - IVFs - IV Rocephin (09/02 - present) - DVT prophylaxis with SCDs - Pt's son updated (09/04) (2) Hypertension ICD Codes: I10 - Essential (primary) hypertension Plan: - stable without BP medications (3) Pedal edema ICD Codes: R60.0 - Localized edema Status: Acute Plan: Patient has chronic pedal edema thought to be secondary to venous insufficiency treated with Lasix per patient and son the edema seems much worse than normal - US BLE (09/02) No DVT identified within either lower extremity. There is edema in the subcutaneous soft tissue - Lasix 20 mg PO daily - teds and SCDs - Echocardiogram done (09/04), await reading - BMP in AM (4) Generalized weakness ICD Codes: R53.1 - Weakness Plan: Patient typically ambulates with a walker but purse patient and per patient patient's son she has had a more difficult time in the last 24 hours Likely secondary to urinary tract infection - PT Patient may need SNF placement at discharge for short-term rehab and strengthening Problem Qualifiers (1) Urinary tract infection: Qualified Codes: N30.00 - Acute cystitis without hematuria (2) Hypertension: Qualified Codes: I10 - Essential (primary) hypertension Darrell Coulter DO Sep 04, 2017 12:27
[2017-09-04] MEDS ORDERED: LORazepam 2 MG/ML VIAL IV PUSH PRN (14:00)
--- NOTE | 2017-09-04 16:10 | ECHRPT ---
Indication: Heart failure CONCLUSIONS Normal left ventricular size. Wall thickness is normal. No regional wall motion abnormalities are present. The left ventricular systolic function is normal with an estimated ejection fraction in the range of 60-65%. Trace mitral valve regurgitation. Mild mitral annular calcification. Aortic valve sclerosis is present. Mild aortic valve regurgitation. There is trace tricuspid valve regurgitation. The estimated pulmonary arterial pressure is 43.9 mmHg. Trivial pulmonary valve regurgitation. BP: / HR: Rhythm: Sinus MEASUREMENTS (Male / Female) Normal Values Technical Quality:Fair 2D ECHO LV Diastolic Diameter PLAX 4.0 cm 4.2 - 5.9 / 3.9 - 5.3 cm LV Systolic Diameter PLAX 2.9 cm IVS Diastolic Thickness 0.8 cm 0.6 - 1.0 / 0.6 - 0.9 cm LVPW Diastolic Thickness 0.8 cm 0.6 - 1.0 / 0.6 - 0.9 cm LV Relative Wall Thickness 0.4 RV Internal Dim ED PLAX 3.1 cm LVOT Diameter 1.7 cm LA Systolic Diameter LX 3.0 cm 3.0 - 4.0 / 2.7 - 3.8 cm LV Ejection Fraction MOD 4C 70.8 % LV Ejection Fraction 4C AL 71.4 % M-MODE Aortic Root Diameter MM 2.2 cm AV Cusp Separation MM 1.6 cm DOPPLER AV Peak Velocity 234.0 cm/s AV Peak Gradient 21.9 mmHg AI Peak Velocity 352.5 cm/s AI Peak Gradient 49.7 mmHg AI Pressure Half Time 432.5 ms LVOT Peak Velocity 156.0 cm/s LVOT Peak Gradient 9.7 mmHg AV Area Cont Eq pk 1.5 cm MV Area PHT 3.2 cm Mitral E Point Velocity 91.3 cm/s Mitral A Point Velocity 110.0 cm/s Mitral E to A Ratio 0.8 LV E' Lateral Velocity 10.5 cm/s Mitral E to LV E' Lateral Ratio 8.7 LV E' Septal Velocity 7.5 cm/s Mitral E to LV E' Septal Ratio 12.2 TR Peak Velocity 291.0 cm/s TR Peak Gradient 33.9 mmHg Right Atrial Pressure 10.0 mmHg Pulmonary Artery Systolic Pressu 43.9 mmHg Right Ventricular Systolic Press 43.9 mmHg PV Peak Velocity 143.0 cm/s PV Peak Gradient 8.2 mmHg FINDINGS LEFT VENTRICLE The left ventricular systolic function is normal with an estimated ejection fraction in the range of 60-65%. Normal left ventricular size. Wall thickness is normal. No regional wall motion abnormalities are present. Doppler parameters are consistent with impaired left ventricular relaxtion (grade 1 diastolic dysfun ction). RIGHT VENTRICLE Normal right ventricular size and systolic function. LEFT ATRIUM The left atrial size is normal. RIGHT ATRIUM The right atrial size is normal. ATRIAL SEPTUM Normal atrial septal thickness without atrial level shunting by limited color doppler interrogation. AORTA The aortic root and proximal ascending aorta are normal in size on limited imaging. MITRAL VALVE Structurally normal mitral valve. Trace mitral valve regurgitation. Mild mitral annular calcification. AORTIC VALVE Trileaflet aortic valve. Aortic valve sclerosis is present. Mild aortic valve regurgitation. TRICUSPID VALVE Structurally normal tricuspid valve. There is trace tricuspid valve regurgitation. The estimated pulmonary arterial pressure is 43.9 mmHg. PULMONARY VALVE Trivial pulmonary valve regurgitation. VESSELS The inferior vena cava is normal in size. PERICARDIUM No pericardial effusion. Jeremie Corado MD (Electronically Signed) Final Date:04 September 2017 16:08
[2017-09-04] MEDS: cefTRIAXone 1,000 MG/NS 100 ML IV SCH ×2 (20:13)
[2017-09-05] VITALS (9 sets, daily range): BP systolic 110–140; BP diastolic 53–68; PULSE 80–99; RESP 16–17; TEMP 97.2–99; O2SAT 92–98
[2017-09-05] MEDS: NYSTATIN 100,000 U/GM OINT 15 GM TUBE TOPICAL SCH ×3 (05:01→20:52)
[2017-09-05] MEDS: DOCUSATE SODIUM 50 MG/SENNA 8.6 MG TAB PO SCH ×2 (09:01→20:49)
[2017-09-05] MEDS: POTASSIUM CHLORIDE 10 MEQ CONTROLLED RELEASE TAB PO SCH (09:02)
[2017-09-05] MEDS: SODIUM CHLORIDE 0.9% FLUSH 10 ML FLUSH IV FLUSH SCH ×2 (09:02→20:52)
[2017-09-05] MEDS: FUROSEMIDE 20 MG TAB PO SCH (09:02)
[2017-09-05] MEDS: PANTOPRAZOLE SOD 20 MG DELAYED RELEASE TAB PO SCH (09:02)
--- NOTE | 2017-09-05 13:07 | HHI.PR ---
Subjective Remarks Patient more awake and alert today c/o neck pain son at bedside believes this is due to pts arthritis and position overnight Objective Vitals Vital Signs Date Time Temp Pulse Resp B/P (MAP) Pulse Ox O2 Delivery O2 Flow Rate FiO2 09/05/17 12:00 97.6 98 16 121/58 (79) 94 09/05/17 08:00 97.6 96 16 129/68 (88) 92 09/05/17 04:30 97.2 91 16 140/65 (90) 98 09/05/17 04:00 86 09/05/17 00:06 98.2 82 16 135/62 (86) 97 09/05/17 00:00 80 09/04/17 20:24 100.4 96 16 146/67 (93) 98 09/04/17 20:00 85 09/04/17 16:00 97.8 90 20 144/65 (91) 95 09/04/17 15:00 83 Result Diagram: 09/04/17 1005 09/04/17 0630 Other Results Laboratory Tests Test 09/02/17 18:15 09/02/17 21:53 09/03/17 08:14 09/04/17 06:30 White Blood Count 9.0 TH/MM3 7.4 TH/MM3 Red Blood Count 4.10 MIL/MM3 4.23 MIL/MM3 Hemoglobin 11.7 GM/DL 12.1 GM/DL Hematocrit 36.1 % 37.1 % Mean Corpuscular Volume 88.0 FL 87.6 FL Mean Corpuscular Hemoglobin 28.4 PG 28.6 PG Mean Corpuscular Hemoglobin Concent 32.3 % 32.6 % Red Cell Distribution Width 15.1 % 14.8 % Platelet Count 184 TH/MM3 121 TH/MM3 Mean Platelet Volume 8.8 FL 8.9 FL Neutrophils (%) (Auto) 79.7 % 75.8 % Lymphocytes (%) (Auto) 11.4 % 11.6 % Monocytes (%) (Auto) 8.5 % 12.4 % Eosinophils (%) (Auto) 0.0 % 0.0 % Basophils (%) (Auto) 0.4 % 0.2 % Neutrophils # (Auto) 7.2 TH/MM3 5.6 TH/MM3 Lymphocytes # (Auto) 1.0 TH/MM3 0.9 TH/MM3 Monocytes # (Auto) 0.8 TH/MM3 0.9 TH/MM3 Eosinophils # (Auto) 0.0 TH/MM3 0.0 TH/MM3 Basophils # (Auto) 0.0 TH/MM3 0.0 TH/MM3 CBC Comment DIFF FINAL DIFF FINAL Differential Comment Prothrombin Time 10.8 SEC Prothromb Time International Ratio 1.1 RATIO Activated Partial Thromboplast Time 22.9 SEC Urine Color YELLOW Urine Turbidity HAZY Urine pH 5.0 Urine Specific [place] 1.018 Urine Protein 100 mg/dL Urine Glucose (UA) NEG mg/dL Urine Ketones TRACE mg/dL Urine Occult Blood SMALL Urine Nitrite POS Urine Bilirubin NEG Urine Urobilinogen 2.0 mg/dL Urine Leukocyte Esterase TRACE Urine RBC 1 /hpf Urine WBC 9 /hpf Urine Squamous Epithelial Cells <1 /hpf Urine Bacteria MANY /hpf Urine Hyaline Casts 21 /lpf Urine Mucus FEW /lpf Microscopic Urinalysis Comment CULTURE INDICATED Blood Urea Nitrogen 31 MG/DL 25 MG/DL 17 MG/DL Creatinine 1.27 MG/DL 0.93 MG/DL 0.69 MG/DL Random Glucose 124 MG/DL 100 MG/DL 114 MG/DL Total Protein 8.1 GM/DL Albumin 3.8 GM/DL Calcium Level 10.3 MG/DL 9.7 MG/DL 9.3 MG/DL Magnesium Level 1.9 MG/DL Alkaline Phosphatase 93 U/L Aspartate Amino Transf (AST/SGOT) 134 U/L Alanine Aminotransferase (ALT/SGPT) 27 U/L Total Bilirubin 0.6 MG/DL Sodium Level 142 MEQ/L 140 MEQ/L 139 MEQ/L Potassium Level 4.2 MEQ/L 4.6 MEQ/L 4.2 MEQ/L Chloride Level 107 MEQ/L 106 MEQ/L 108 MEQ/L Carbon Dioxide Level 20.8 MEQ/L 27.9 MEQ/L 23.8 MEQ/L Anion Gap 14 MEQ/L 6 MEQ/L 7 MEQ/L Estimat Glomerular Filtration Rate 40 ML/MIN 57 ML/MIN 80 ML/MIN Lactic Acid Level 3.9 mmol/L 1.1 mmol/L Troponin I LESS THAN 0.02 NG/ML B-Type Natriuretic Peptide 109 PG/ML Test 09/04/17 10:05 White Blood Count 9.5 TH/MM3 Red Blood Count 3.86 MIL/MM3 Hemoglobin 11.4 GM/DL Hematocrit 33.7 % Mean Corpuscular Volume 87.2 FL Mean Corpuscular Hemoglobin 29.4 PG Mean Corpuscular Hemoglobin Concent 33.7 % Red Cell Distribution Width 14.7 % Platelet Count 123 TH/MM3 Mean Platelet Volume 8.8 FL Neutrophils (%) (Auto) 78.0 % Lymphocytes (%) (Auto) 8.9 % Monocytes (%) (Auto) 12.9 % Eosinophils (%) (Auto) 0.1 % Basophils (%) (Auto) 0.1 % Neutrophils # (Auto) 7.4 TH/MM3 Lymphocytes # (Auto) 0.9 TH/MM3 Monocytes # (Auto) 1.2 TH/MM3 Eosinophils # (Auto) 0.0 TH/MM3 Basophils # (Auto) 0.0 TH/MM3 CBC Comment DIFF FINAL Differential Comment Imaging Last Impressions Lower Extremity Ultrasound 09/03/17 0000 Signed Impressions: CONCLUSION: 1. No DVT identified within either lower extremity. 2. There is edema in the subcutaneous soft tissues. Chest X-Ray 09/02/17 1757 Signed Impressions: CONCLUSION: Somewhat limited study. No infiltrate observed. Objective Remarks GENERAL: This is an elderly 87year old female patient with periods of confusion , in no apparent distress. CARDIOVASCULAR: Regular rate and rhythm RESPIRATORY: Clear to auscultation. Breath sounds equal bilaterally. GASTROINTESTINAL: Abdomen soft, non-tender, nondistended. Normal active bowel sounds MUSCULOSKELETAL: Extremities without clubbing, cyanosis. 1-2+ pitting edema ( chronic) NEURO: Awake and alert, but confused at times. A/P Problem List: (1) Urinary tract infection ICD Codes: N39.0 - Urinary tract infection, site not specified Status: Acute Plan: This 87-year-old female patient with past medical history which includes hypertension, hyperlipidemia, depression, thrombocytopenia, hyperparathyroidism , chronic kidney disease stage III and chronic bilateral lower extremity edema due to venous insufficiency. Patient lives with her son and was brought in to the emergency department by by her son for multiple concerns including increased chronic pedal edema, lower extremity discomfort, confusion and being more agitated and argumentative than her baseline. - Urine Cx (09/02) --> E. Coli - Blood Cx (09/02) --> NGTD - Tmax 100.4F 09/04/18 at 2023, no leukocytosis - Initial lactic acid 3.9 repeat lactic acid 1.1 after IV hydration - IVFs - IV Rocephin (09/02 - present) - DVT prophylaxis with SCDs - Pt's son updated (09/04) (2) Hypertension ICD Codes: I10 - Essential (primary) hypertension Plan: - stable without BP medications (3) Pedal edema ICD Codes: R60.0 - Localized edema Status: Acute Plan: Patient has chronic pedal edema thought to be secondary to venous insufficiency treated with Lasix per patient and son the edema seems much worse than normal - US BLE (09/02) No DVT identified within either lower extremity. There is edema in the subcutaneous soft tissue - Lasix 20 mg PO daily - teds and SCDs - Echocardiogram done (09/04): Normal left ventricular size. Wall thickness is normal. No regional wall motion abnormalities are present. The left ventricular systolic function is normal with an estimated ejection fraction in the range of 60-65%. Trace mitral valve regurgitation. Mild mitral annular calcification. Aortic valve sclerosis is present. Mild aortic valve regurgitation. There is trace tricuspid valve regurgitation. The estimated pulmonary arterial pressure is 43.9 mmHg. Trivial pulmonary valve regurgitation. (4) Generalized weakness ICD Codes: R53.1 - Weakness Plan: Patient typically ambulates with a walker but purse patient and per patient patient's son she has had a more difficult time in the last 24 hours Likely secondary to urinary tract infection - PT recommending SNF at time of DC - Case management consulted (5) Arthritis ICD Codes: M19.90 - Unspecified osteoarthritis, unspecified site Plan: Patient has chronic arthritis c/o neck pain secondary to position overnight Tylenol 500 mg Q8H x 1 day and then PRN k thermia pad and reposition for comfort Assessment and Plan Patient examined. Assessment and plan formulated with Yane Hawk PA-C. I agree with the above. Problem Qualifiers (1) Urinary tract infection: Qualified Codes: N30.00 - Acute cystitis without hematuria (2) Hypertension: Qualified Codes: I10 - Essential (primary) hypertension Yane Hawk Sep 05, 2017 13:07 Darrell Coulter DO Sep 07, 2017 11:26
[2017-09-05] MEDS: ACETAMINOPHEN 500 MG CPLT PO SCH ×2 (15:42→20:49)
[2017-09-05] MEDS: cefTRIAXone 1,000 MG/NS 100 ML IV SCH ×2 (20:50)
[2017-09-06 00:02] VITALS: PULSE 77
[2017-09-06 00:28] VITALS: BP 145/61; PULSE 82; RESP 16; TEMP 97.8; O2SAT 94
[2017-09-06 04:33] VITALS: BP 159/72; PULSE 100; RESP 17; TEMP 98; O2SAT 97
[2017-09-06] MEDS: ACETAMINOPHEN 500 MG CPLT PO SCH ×2 (05:26→12:22)
[2017-09-06] MEDS: NYSTATIN 100,000 U/GM OINT 15 GM TUBE TOPICAL SCH ×2 (05:26→12:22)
[2017-09-06 08:00] VITALS: BP 122/68; PULSE 93; RESP 18; TEMP 97.3; O2SAT 94
[2017-09-06] MEDS: FUROSEMIDE 20 MG TAB PO SCH (08:15)
[2017-09-06] MEDS: DOCUSATE SODIUM 50 MG/SENNA 8.6 MG TAB PO SCH (08:15)
[2017-09-06] MEDS: POTASSIUM CHLORIDE 10 MEQ CONTROLLED RELEASE TAB PO SCH (08:15)
[2017-09-06] MEDS: SODIUM CHLORIDE 0.9% FLUSH 10 ML FLUSH IV FLUSH SCH (08:15)
[2017-09-06] MEDS: PANTOPRAZOLE SOD 20 MG DELAYED RELEASE TAB PO SCH (08:15)
--- NOTE | 2017-09-06 08:46 | HHI.DCPOC ---
Discharge Care Plan Diagnosis: (1) Urinary tract infection (2) Generalized weakness (3) Pedal edema Goals to Promote Your Health * To prevent worsening of your condition and complications * To maintain your health at the optimal level Directions to Meet Your Goals Take your medications as prescribed Follow your dietary instruction Follow activity as directed Keep your appointments as scheduled Take your immunizations and boosters as scheduled If your symptoms worsen call your PCP, if no PCP go to Urgent Care Center or Emergency Room Smoking is Dangerous to Your Health. Avoid second hand smoke Call the 24-hour hour crisis hotline for domestic abuse at Yane Hawk Sep 06, 2017 08:46
--- NOTE | 2017-09-06 08:49 | HHI.DS ---
Discharge Summary Admission Date Sep 02, 2017 at 20:01 Discharge Date: Sep 06, 2017 Admitting Diagnosis UTI/Pedal Edema (1) Urinary tract infection ICD Codes: N39.0 - Urinary tract infection, site not specified Status: Acute (2) Hypertension ICD Codes: I10 - Essential (primary) hypertension (3) Pedal edema ICD Codes: R60.0 - Localized edema Status: Acute (4) Generalized weakness ICD Codes: R53.1 - Weakness (5) Arthritis ICD Codes: M19.90 - Unspecified osteoarthritis, unspecified site Consultants None Procedures none Brief History This 87-year-old female patient with past medical history which includes hypertension, hyperlipidemia, depression, thrombocytopenia, hyperparathyroidism , chronic kidney disease stage III and chronic bilateral lower extremity edema due to venous insufficiency. Patient lives with her son and was brought in to the emergency department by her son. Patient's son took patient to heel coverer this AM and patient had a hard time walking and seemed confused. Patient's son then brought her to the ER with complaints including increase in chronic pedal edema, lower extremity discomfort, confusion and being more agitated and argumentative than her baseline. Patient does endorse generalized weakness compared to her baseline as well as bilateral lower extremity edema and discomfort. Patient endorses mild shortness of breath which is worse with exertion. Patient denies dysuria but does have incontinence. Patient denies chest pain nausea vomiting diarrhea constipation fevers chills cough, congestion or weight gain. Urinalysis reviewed and reveals high protein positive nitrates trace mild leukocyte esterase urine white blood cells many bacteria and few mucus present urine cultures pending CBC/BMP: 09/04/17 1005 09/04/17 0630 Significant Findings Laboratory Tests Test 09/04/17 06:30 09/04/17 10:05 Random Glucose 114 MG/DL (74-106) Chloride Level 108 MEQ/L (98-107) Estimat Glomerular Filtration Rate 80 ML/MIN (>89) Red Blood Count 3.86 MIL/MM3 (4.00-5.30) Hemoglobin 11.4 GM/DL (11.6-15.3) Hematocrit 33.7 % (35.0-46.0) Platelet Count 123 TH/MM3 (150-450) Neutrophils (%) (Auto) 78.0 % (16.0-70.0) Lymphocytes (%) (Auto) 8.9 % (9.0-44.0) Monocytes (%) (Auto) 12.9 % (0.0-8.0) Lymphocytes # (Auto) 0.9 TH/MM3 (1.0-4.8) Monocytes # (Auto) 1.2 TH/MM3 (0-0.9) Imaging Last Impressions Lower Extremity Ultrasound 09/03/17 0000 Signed Impressions: CONCLUSION: 1. No DVT identified within either lower extremity. 2. There is edema in the subcutaneous soft tissues. Chest X-Ray 09/02/17 1757 Signed Impressions: CONCLUSION: Somewhat limited study. No infiltrate observed. PE at Discharge GENERAL: This is an elderly 87year old female patient with periods of confusion , in no apparent distress. CARDIOVASCULAR: Regular rate and rhythm RESPIRATORY: Clear to auscultation. Breath sounds equal bilaterally. GASTROINTESTINAL: Abdomen soft, non-tender, nondistended. Normal active bowel sounds MUSCULOSKELETAL: Extremities without clubbing, cyanosis. 1-2+ pitting edema ( chronic) NEURO: Awake and alert, but confused at times. Hospital Course Urinary tract infection This 87-year-old female patient with past medical history which includes hypertension, hyperlipidemia, depression, thrombocytopenia, hyperparathyroidism , chronic kidney disease stage III and chronic bilateral lower extremity edema due to venous insufficiency. Patient lives with her son and was brought in to the emergency department by by her son for multiple concerns including increased chronic pedal edema, lower extremity discomfort, confusion and being more agitated and argumentative than her baseline. - Urine Cx (09/02) --> E. Coli - Blood Cx (09/02) --> no growth x 3 days - Tmax 100.4F 09/04/18 at 2023, no leukocytosis - Initial lactic acid 3.9 repeat lactic acid 1.1 after IV hydration - IVFs - IV Rocephin (09/02 - present), total of 4 days - DVT prophylaxis with SCDs - Pt's son updated (09/05) Hypertension - stable without BP medications Pedal edema Patient has chronic pedal edema thought to be secondary to venous insufficiency treated with Lasix per patient and son the edema seems much worse than normal - US BLE (09/02) No DVT identified within either lower extremity. There is edema in the subcutaneous soft tissue - Lasix 20 mg PO daily - teds and SCDs - Echocardiogram done (09/04): Normal left ventricular size. Wall thickness is normal. No regional wall motion abnormalities are present. The left ventricular systolic function is normal with an estimated ejection fraction in the range of 60-65%. Trace mitral valve regurgitation. Mild mitral annular calcification. Aortic valve sclerosis is present. Mild aortic valve regurgitation. There is trace tricuspid valve regurgitation. The estimated pulmonary arterial pressure is 43.9 mmHg. Trivial pulmonary valve regurgitation. Generalized weakness Patient typically ambulates with a walker but purse patient and per patient patient's son she has had a more difficult time in the last 24 hours Likely secondary to urinary tract infection - PT recommending SNF at time of DC - Case management consulted Arthritis Patient has chronic arthritis c/o neck pain secondary to position overnight Tylenol 500 mg Q8H x 1 day and then PRN k thermia pad and reposition for comfort Pt Condition on Discharge: Stable Discharge Disposition: Discharge to SNF Discharge Instructions DIET: Follow Instructions for: As Tolerated, No Restrictions Activities you can perform: See Additionl Instruction Other Activity Instructions: OOB with assistance Follow up Referrals: PCP Follow-up - [address] Baldwin New Medications: Ciprofloxacin (Cipro) 250 Mg Tab 250 MG PO BID for Infection for 3 Days, #6 TAB 0 Refills Continued Medications: Calcium Carbonate-Cholecalcife (Calcium 600+D3) +D3 Tab 1 MG PO DAILY Furosemide (Lasix) 20 Mg Tab 20 MG PO DAILY Omeprazole 20 mg (Prilosec 20 mg) 20 Mg Capcr 20 MG PO DAILY Potassium Chloride (K-Dur) 10 Meq Tabcr 10 MEQ PO DAILY Yane Hawk Sep 06, 2017 08:49 Kendrick Moura MD Sep 06, 2017 13:52
[2017-09-06] MEDS ORDERED: BACT800T5 PO (11:52)
[2017-09-06 12:00] VITALS: BP 145/64; PULSE 102; RESP 18; TEMP 98.1; O2SAT 96
[2017-09-06] MEDS ORDERED: CIPR250T52 PO (12:38)
== END 2017-09-06 16:42 | DRG 872 ==
LOC: NEPC 17:06 → NEDA 20:01 → NEPGCP 22:07 → N07B 09-04 19:40
PROVIDERS: ADMIT Hospitalist; ATTEND Hospitalist
DX: A41.9 Sepsis, unspecified organism (principal); D69.6 Thrombocytopenia, unspecified; N39.0 Urinary tract infection, site not specified; N18.3 Chronic kidney disease, stage 3 (moderate); I35.1 Nonrheumatic aortic (valve) insufficiency; R60.0 Localized edema; R53.1 Weakness; I12.9 Hypertensive chronic kidney disease with stage 1 through stage 4 chronic kidney disease, or unspecified chronic kidney disease; R65.20 Severe sepsis without septic shock; B96.20 Unspecified Escherichia coli [E. coli] as the cause of diseases classified elsewhere; M79.606 Pain in leg, unspecified; I87.2 Venous insufficiency (chronic) (peripheral); E78.5 Hyperlipidemia, unspecified; E21.3 Hyperparathyroidism, unspecified; M54.2 Cervicalgia; F41.9 Anxiety disorder, unspecified; F32.9 Major depressive disorder, single episode, unspecified; M19.90 Unspecified osteoarthritis, unspecified site; Z82.49 Family history of ischemic heart disease and other diseases of the circulatory system
CPT/HCPCS: 71045; 80048; 80053; 81001; 82948; 83605; 83735; 83880; 84484; 85025; 85610; 85730; 87040; 87077; 87086; 87186; 93005; 93306; 93970; 96365; J0696; J2060; P9612